=== PATIENT | male | born 1940 | race Caucasian/White ===

== ENCOUNTER 2022-01-20 19:31 | Observation (INO) | payer MEDICARE, SELFPAY ==
[2022-01-20 19:56] VITALS: BP 122/69; PULSE 72; RESP 18; TEMP 36.6; O2SAT 97; BMI 32.5
--- NOTE | 2022-01-20 20:02 | DI.RAD.S_ITS ---
PROCEDURE: XR RIBS LT MIN 3V W CXR1V INDICATIONS: fall/pain TECHNIQUE: 3 views of the left ribs were acquired, along with a single view chest. COMPARISON: None. FINDINGS: Surgical changes and devices: A left chest wall pacemaker is present. Bones and chest wall: There are mildly displaced fractures of the left 8th through 10th ribs posterolaterally. No suspicious bony lesions. Overlying soft tissues appear unremarkable. Lungs and pleura: No pleural effusions or pneumothorax. Lungs appear clear. Mediastinum: Mediastinal contours appear normal. Heart size is normal. IMPRESSION: 1. Mildly displaced fractures of the left 8th through 10th ribs. Dictated by: Jamie Starr M.D. on 01/20/2022 at 20:53 Approved by: Jamie Starr M.D. on 01/20/2022 at 20:55
[2022-01-20] MEDS: ACETAMINOPHEN 325 MG TABLET 650 MG PO (20:40)
--- NOTE | 2022-01-20 22:10 | DI.CT.S_ITS ---
PROCEDURE: CT CHEST W CON INDICATIONS: trauma, rib fractures, on eliquis TECHNIQUE: After the administration of intravenous contrast, 5 mm thick sections acquired from the pulmonary apices to the posterior costophrenic angles. 1 mm axial lung, 5 mm thick coronal and sagittal reformats and 7 mm axial MIP were acquired. For radiation dose reduction, the following was used: automated exposure control, adjustment of mA and/or kV according to patient size. COMPARISON: [facility], CR, XR RIBS LT MIN 3V W CXR1V, 01/20/2022, 20:03. FINDINGS: Image quality: Excellent. Lungs and pleura: No acute air space opacities. No pleural effusions or pneumothorax. Central and peripheral airways are patent and normal in caliber. Mediastinum: Heart size is normal. No pericardial effusion. No mediastinal or hilar adenopathy by size criteria. Thoracic aorta and central pulmonary arteries are normal in size. Esophagus is normal in caliber. No hiatal hernia. Bones and chest wall: No suspicious bony lesions, but prior plain film imaging same day has identified left-sided lateral 8th through 10th rib fractures. The 10th rib fracture can be seen by CT scanning as a discontinuity of the posterolateral course of the left 10th rib. The 11th rib more inferiorly on the left also has a subtle fracture on CT scanning.. No vertebral body compression fractures. No axillary or supraclavicular adenopathy by size criteria. Thyroid gland appears normal where well seen. Left-sided cardiac pacemaking device and leads appear normally positioned. Abdomen: Visualized upper abdominal solid organs appear normal. Upper abdominal bowel loops are normal in caliber. IMPRESSION: No pneumothorax found after trauma to the left chest with posterolateral left 8th through 10th rib fractures identified by plain film imaging and less well visualized by CT scanning given their minimally displaced status. No hemothorax or pulmonary contusion is found. Dictated by: Geovany Patrick M.D. on 01/20/2022 at 23:13 Approved by: Geovany Patrick M.D. on 01/20/2022 at 23:24
[2022-01-20] MEDS: OXYCODONE/ACETAMINOPHEN 5/325 TABLET 2 TAB PO (22:17)
[2022-01-20 22:38] LABS: Add Manual Diff / Slide Review NO; Basophils Absolute Auto 300 /uL (0-100); Basophils Percent Auto 2.1 % (0-2); Eosinophils Absolute Auto 100 /uL (0-450); Hematocrit 41.2 % (41-53); Lymphocytes Absolute Auto 1400 /uL (1100-4500); Mean Corpuscular Hemoglobin 30.5 PG (26-34); Mean Corpuscular Volume 89.6 fL (80-100); Monocytes Absolute Auto 600 /uL (0-900); Monocytes Percent Auto 4.5 % (3-14); Neutrophils Absolute Auto 11300 /uL (1500-7000); Neutrophils Percent Auto 82.4 % (50-75); Platelet Count 291 X10^3/uL (150-400); Red Cell Distribution Width 13.2 % (11.6-14.8); White Blood Cell Count 13.7 X10^3/uL (4.5-11.0)
[2022-01-20 22:46] LABS: Alanine Aminotransferase 16 IU/L (<50); Albumin Globulin Ratio 1.1 (1.0-2.8); Alkaline Phosphatase 85 U/L (38-126); Aspartate Aminotransferase 27 IU/L (17-59); BUN Creatinine Ratio 22.1 (6-22); Bilirubin Total 0.6 mg/dL (0.2-1.3); Blood Urea Nitrogen 21 mg/dL (9-20); Calcium 8.8 mg/dL (8.4-10.2); Carbon Dioxide 26 mmol/L (22-32); Chloride 106 mmol/L (98-107); Estimated Glomerular Filt Rate > 60 mL/min (>60); Globulin 3.5 g/dL (1.7-4.1); Glucose 113 mg/dL (80-110); HEMOLYSIS 25 (0-50); Potassium 4.5 mmol/L (3.4-5.1); Sodium 139 mmol/L (137-145); Total Protein 7.5 g/dL (6.3-8.2)
[2022-01-20 23:27] LABS: COVID19 -Nasal RAPID Negative (Negative)
--- NOTE | 2022-01-20 23:57 | ED_ITS ---
HPI - Back Pain/Injury General Chief Complaint: Back Pain/Injury Stated Complaint: Fell on boat, left side kidney Time Seen by Provider: 01/20/22 20:20 Source: patient History of Present Illness HPI Narrative: 81-year-old gentleman with a history of atrial fibrillation anticoagulated on Eliquis, pacemaker, hypertension, is visiting from [place] to get his boat ready for winter. He stepped through a hood on his boat and fell landing with his left lower ribs on the edge of a hat. He was able to extricate himself and get to the emergency department. He is not complaining of dyspnea but is noting that he has severe pain and as long as he is sitting upright and not moving he seems to be okay but is not able to lay back or take a deep breath. He is not complaining of any other injuries at this time. Prior to the fall he had not noticed any fevers, cough, chills, chest pain, dyspnea has not noticed palpitations. No abdominal pain weight gain, vomiting, diarrhea, lower extremity edema. Related Data Allergies Allergy/AdvReac Type Severity Reaction Status Date / Time No Known Drug Allergies Allergy Verified 01/20/22 19:56 Review of Systems Review of Systems Narrative: Remainder of complete review of systems is otherwise unremarkable except for that included in the HPI. Patient History Medical History Chronic atrial fibrillation History of cardiac pacemaker Hypertension Social History Smoking Status: Current every day smoker Smoking Status: Current every day smoker tobacco type: cigars alcohol intake frequency: holidays/special occasions only Substance Use Type: does not use Exam Initial Vital Signs Initial Vital Signs: Vital Signs Temperature 97.8 F 01/20/22 19:56 Pulse Rate 72 01/20/22 19:56 Respiratory Rate 18 01/20/22 19:56 Blood Pressure 122/69 01/20/22 19:56 Pulse Oximetry 97 01/20/22 19:56 Oxygen Delivery Method 01/20/22 19:56 General: Healthy appearing, in moderate amount of pain but Able to give a complete and coherent history. Well-nourished well-developed HEENT: Moist mucous membranes, normal sclera with reactive pupils, Neck: No JVD, supple, no midline cervical spine tenderness. Respiratory: Lungs are clear to auscultation, diminished breath sounds on the left due to splinting, no wheezing no rales no rhonchi. Minor linear abrasion over the left posterior lower ribs. Tenderness along the posterior axillary line left side. No subcutaneous emphysema. No obvious bruising. Cardiac: Regular rate and rhythm no murmurs no bruits Abdomen: Soft, nontender, good bowel tones, no flank pain, no abrasions or contusions Skin: Warm and dry, no rashes Neurologic: Grossly neurologically intact with no obvious asymmetries or abnormalities Extremities: No trauma, well perfused Psych: Cooperative, appropriate insight and affect Course Orders Ordered: ED Orders 01/20/22 20:02 XR ribs LT min 3V w CXR1V Stat 01/20/22 22:10 CT chest w con Stat 01/20/22 22:28 CBC Auto Diff [Complete Blood Count AUTO DIFF] Stat CMP [Comprehensive Metabolic Panel] Stat 01/20/22 23:05 COVID19 -Nasal RAPID/Pre-Proc Stat Discontinued Medications Acetaminophen (Acetaminophen 325 Mg Tablet) 650 mg PO NOW ONE Stop: 01/20/22 20:31 Last Admin: 01/20/22 20:40 Dose: 650 mg Documented By: NEELAM Oxycodone/Acetaminophen (Oxycodone/Acetaminophen 5/325 Tablet) 2 tab PO NOW ONE Stop: 01/20/22 22:11 Last Admin: 01/20/22 22:17 Dose: 2 tab Documented By: SB Vital Signs Vital signs: Vital Signs - 8 hr 01/20/22 19:56 Temperature 97.8 F Pulse Rate 72 Respiratory Rate 18 Blood Pressure 122/69 Pulse Oximetry 97 Oxygen Delivery Method Room Air MDM - Back Pain/Injury Lab Data Result diagrams: 01/20/22 22:28 01/20/22 22:28 Labs: Lab Results 01/20/22 01/20/22 01/20/22 Range/Units 22:28 22:28 23:05 WBC 13.7 H (4.5-11.0) X10^3/uL RBC 4.60 (4.5-5.9) X10^6/uL Hgb 14.0 (13.5-17.5) g/dL Hct 41.2 (41-53) % MCV 89.6 (80-100) fL MCH 30.5 (26-34) PG MCHC 34.0 (30-36) % RDW 13.2 (11.6-14.8) % Plt Count 291 (150-400) X10^3/uL Neut % (Auto) 82.4 H (50-75) % Lymph % (Auto) 10.0 L (25-40) % [place] % (Auto) 4.5 (3-14) % Eos % (Auto) 1.0 L (2-4) % Baso % (Auto) 2.1 H (0-2) % Neut # (Auto) 51918 H (0276-5783) /uL Lymph # (Auto) 1400 (1349-4180) /uL [place] # (Auto) 600 (0-900) /uL Eos # (Auto) 100 (0-450) /uL Baso # (Auto) 300 H (0-100) /uL Sodium 139 (137-145) mmol/L Potassium 4.5 (3.4-5.1) mmol/L Chloride 106 (98-107) mmol/L Carbon Dioxide 26 (22-32) mmol/L BUN 21 H (9-20) mg/dL Creatinine 0.95 (0.66-1.25) mg/dL Estimated GFR > 60 (>60) mL/min BUN/Creatinine Ratio 22.1 H (6-22) Glucose 113 H (80-110) mg/dL Calcium 8.8 (8.4-10.2) mg/dL Total Bilirubin 0.6 (0.2-1.3) mg/dL AST 27 (17-59) IU/L ALT 16 (<50) IU/L Alkaline Phosphatase 85 (38-126) U/L Total Protein 7.5 (6.3-8.2) g/dL Albumin 4.0 (3.5-5.0) g/dL Globulin 3.5 (1.7-4.1) g/dL Albumin/Globulin Ratio 1.1 (1.0-2.8) SARS-CoV-2 (PCR) Negative (Negative) Imaging Data Chest x-ray: Radiologist's Impression: FINDINGS:? ? Surgical changes and devices:? A left chest wall pacemaker is present.? ? Bones and chest wall:? There are mildly displaced fractures of the left 8th through 10th ribs posterolaterally.? No suspicious bony lesions.? Overlying soft tissues appear unremarkable.? ? Lungs and pleura:? No pleural effusions or pneumothorax.? Lungs appear clear.? ? Mediastinum:? Mediastinal contours appear normal.? Heart size is normal.? ? IMPRESSION:? ? 1. Mildly displaced fractures of the left 8th through 10th ribs. ? ? Dictated by: Jamie Starr M.D. on 01/20/2022 at 20:53 ? ? CT chest: Radiologist's Impression: INDINGS:? Image quality:? Excellent.? ? Lungs and pleura:? No acute air space opacities.? No pleural effusions or pneumothorax.? Central and peripheral airways are patent and normal in caliber.? ? Mediastinum:? Heart size is normal.? No pericardial effusion.? No mediastinal or hilar adenopathy by size criteria.? Thoracic aorta and central pulmonary arteries are normal in size.? Esophagus is normal in caliber.? No hiatal hernia.? ? Bones and chest wall:? No suspicious bony lesions, but prior plain film imaging same day has identified left-sided lateral 8th through 10th rib fractures.? The 10th rib fracture can be seen by CT scanning as a discontinuity of the posterolateral course of the left 10th rib.? The 11th rib more inferiorly on the left also has a subtle fracture on CT scanning..? No vertebral body compression fractures.? No axillary or supraclavicular adenopathy by size criteria.? Thyroid gland appears normal where well seen.? Left-sided cardiac pacemaking device and leads appear normally positioned.? ? Abdomen:? Visualized upper abdominal solid organs appear normal.? Upper abdominal bowel loops are normal in caliber.? ? IMPRESSION:? No pneumothorax found after trauma to the left chest with posterolateral left 8th through 10th rib fractures identified by plain film imaging and less well visualized by CT scanning given their minimally displaced status.? No hemothorax or pulmonary contusion is found. ? ? Dictated by: Geovany Patrick M.D. on 01/20/2022 at 23:13 ? ? [facility] Narrative Medical decision making narrative: 81-year-old gentle with for left-sided posterior broken ribs after a fall. He c urrently am is staying on his boat and has no family available to help. Pain control is somewhat improved after 2 Percocet but he still not able to lay flat in any way. He is having some significant splinting and has been given an incentive spirometer. At this point I would like to admit him for observation with for rib fractures in an 81-year-old gentleman with multiple medical problems including anticoagulation. I believe a brief period of observation with physical therapy evaluation and adequate pain control to make sure that he truly will be safe to be discharged home independently to return to his boat is going to be appropriate. Spoke with Ms. Singh, [facility] hospitalist. Discharge Plan Departure Patient Disposition: Admitted as Observation Admit Date/Time: 01/21/22 00:04
[2022-01-21 00:25] VITALS: BP 159/77; PULSE 70; RESP 18; TEMP 36.6; O2SAT 99
[2022-01-21 00:34] VITALS: O2SAT 97
[2022-01-21 00:41] VITALS: BMI 32.2
--- NOTE | 2022-01-21 01:47 | P.HP_ITS ---
History of Present Illness History of Present Illness Date Patient Seen: 01/21/22 Time Patient Seen: 12:20 Chief complaint: Fell on boat, left side kidney Narrative: Nima Lacy 81-year-old gentleman with a history of atrial fibrillation anticoagulated on Eliquis, pacemaker, and hypertension, who is visiting from [place] to get his boat ready for winter storage.? He stepped through a hood on his boat and fell landing with his left lower ribs on the edge of a hood.? He was able to extricate himself and get to the emergency department.? Patient denies shortness of breath but does have has severe pain with deep breaths or movement, unable to lay flat and as long as he is sitting upright and not moving he seems to be okay but is not able to lay back or take a deep breath.? He is not complaining of any other injuries at this time.? Prior to the fall he had not noticed any fevers, cough, chills, chest pain, dyspnea, palpitations, fever, abdominal pain, weight gain, vomiting, diarrhea, notes that he does have frequent urination but is at baseline no dysuria, urgency, no changes or difficulty with bowels, dizziness, lightheadedness, hypotension, no recent illness injury or trauma. Upon admit patient is stable vital signs temp 97.8?, BP 122/69, HR 72, R 18, O2 saturation 97% on room air. Patient did have a mild increase WBC 13.7 with a left shift neutrophils 11,300, baso#300, all other CBC chemistry and liver panel were WNL. Chest CT:?No pneumothorax found after trauma to the left chest with posterolateral left 8th through 10th rib fractures minimally displaced, No hemothorax or pulmonary contusion is found. Patient admitted for ground level fall resulting in multiple left rib fractures on chronic anticoagulation. 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 Pacemaker Surgical History History of radiofrequency ablation (RFA) for complex left atrial arrhythmia Family & Social History Family History Mother Congestive heart failure Father Cancer Social History: household members none Prior Living Arrangements House Safety & Behavioral: Feels Safe in Current Yes Environment Been Physically Hurt or No Threatened By a Person Tobacco & Substance use: Smoking Status Current one cigar daily alcohol intake frequency holiday/special occasion Substance Use Type does not use Meds Home Medications and Allergies Home Medications Medication Instructions Recorded Confirmed Type apixaban 5 mg tablet (Eliquis) 5 mg PO BID 01/21/22 01/21/22 History lisinopril 5 mg tablet 5 mg PO DAILY 01/21/22 01/21/22 History Allergies Allergy/AdvReac Type Severity Reaction Status Date / Time No Known Drug Allergies Allergy Verified 01/20/22 19:56 Review of Systems Review of Systems Narrative: All 12 point systems reviewed with the patient and are negative except otherwise documented. Exam Vital Signs (past 8 hours): - 01/20/22 19:56 01/21/22 00:25 01/21/22 00:34 Temperature 97.8 F 97.8 F Pulse Rate 72 70 Respiratory Rate 18 18 Blood Pressure 122/69 159/77 H Pulse Oximetry 97 99 97 Oxygen Delivery Method Room Air Room Air Oxygen Flow Rate 0 Oxygen Delivery Method Room Air Oxygen Flow Rate 0 Narrative Exam Narrative: General: Patient is a well-developed, well-nourished elderly male who appears younger than stated age, in moderate pain with deep breathing or any movement, in no acute distress at this time. HEENT: Normocephalic, atraumatic, extraocular muscles intact, oral pharynx is clear and mucous membranes are moist. Neck is supple and symmetric, trachea is midline, no adenopathy, no thyroid enlargement, nontender, no masses palpated. Negative for JVD Chest: Normal AP diameter and contour without kyphoscoliosis, no nasal flaring, retractions, or tachypneic labored Lungs: Lungs are clear to auscultation, diminished breath sounds on the left due to splinting, no wheezing no rales no rhonchi. Minor linear abrasion over the left posterior lower ribs. Tenderness along the posterior axillary line left side. No subcutaneous emphysema. No obvious bruising. Cardio: PACED regular rate and rhythm without murmur, rubs, or gallops, no carotid bruit, no cardiac pulsations present. (Pacemaker in place) Abdomen: Soft nontender, negative for organomegaly, or masses. Bowel sounds are present in all 4 quadrants without guarding or rebound, no CVA tenderness. Musculoskeletal: Muscle strength and tone are equal within normal limits, no deformity, crepitus, effusions, cyanosis, or clubbing present. Mild lower extremity equal , nonpitting +1 edema, Full range of motion intact radial and pedal pulses are normal. Skin: Large abrasion to lateral left thigh, without signs of infection. Neuro: Alert and orientated x3, strength is +5/5 in all extremities, sensation to touch intact, no gross deficits noted of cranial nerves. Psych: Patient has a well-kept appearance, appropriate affect, mental status attitude thought context and judgment are appropriate for age. Objective Labs Result Diagrams: 01/20/22 22:28 01/20/22 22:28 Labs: Laboratory Results - last 24 hr 01/20/22 01/20/22 01/20/22 22:28 22:28 23:05 WBC 13.7 H RBC 4.60 Hgb 14.0 Hct 41.2 MCV 89.6 MCH 30.5 MCHC 34.0 RDW 13.2 Plt Count 291 Neut % (Auto) 82.4 H Lymph % (Auto) 10.0 L [place] % (Auto) 4.5 Eos % (Auto) 1.0 L Baso % (Auto) 2.1 H Neut # (Auto) 54419 H Lymph # (Auto) 1400 [place] # (Auto) 600 Eos # (Auto) 100 Baso # (Auto) 300 H Sodium 139 Potassium 4.5 Chloride 106 Carbon Dioxide 26 BUN 21 H Creatinine 0.95 Estimated GFR > 60 BUN/Creatinine Ratio 22.1 H Glucose 113 H Calcium 8.8 Total Bilirubin 0.6 AST 27 ALT 16 Alkaline Phosphatase 85 Total Protein 7.5 Albumin 4.0 Globulin 3.5 Albumin/Globulin Ratio 1.1 SARS-CoV-2 (PCR) Negative Assessment & Plan Assessment & Plan narrative: Nima Lacy 81-year-old gentleman with a history of atrial fib rillation anticoagulated on Eliquis, pacemaker, and hypertension, who is visiting from [place] to get his boat ready for winter storage.? He stepped through a hood on his boat and fell landing with his left lower ribs, admitted for ground level fall resulting in multiple left rib fractures on chronic anticoagulation, observation to monitor for bleeding, infection, respiratory distress. 1. Ground level fall resulting in left rib fractures, 8-10 ribs, mildly displaced, acute, present on admission -Chest CT:?No pneumothorax found after trauma to the left chest with posterolateral left 8th through 10th rib fractures minimally displaced, No hemothorax or pulmonary contusion is found. -monitor for pneumothorax, bleeding, signs of infection, shock -pain control: oxycodone, Voltaren gel, lidocaine patch, ice PRN -gentle hydration NS at 60 cc/HR -patient education provided regarding splinting for deep breathing -incentive spirometry q.2 hours while awake to encourage deep breathing. -PT/OT consults 2. Atrial fibrillation on chronic anticoagulation Eliquis, with pacemaker, chronic, present on admission -patient placed on telemetry -continue Eliquis 3. Hypertension, essential, chronic, present on [id number] -continue lisinopril 4. Overweight as evidence by BMI of 32.5, acute on chronic, present on admission -patient's weight may impact his ability to heal developed infection ultimately putting him at high risk for morbidity and mortality. -dietary consult placed for nutritional education, lifestyle modification and weight loss. Code status:DNR Surrogate decision maker: Daughter Libby MARSH PCR: Negative DVT/VTE prophylaxis: Continue patient's Eliquis, SCDs only Disposition: Patient admitted for observation to monitor for bleeding signs of sepsis or septic shock, respiratory distress or pneumothorax, expected length of stay less than 3 midnights. I have utilized all available immediate resources to obtain, update, or review the patient's current medications. I confirmed that the patient's advanced care plan is present, Code status is documented and/or surrogate decision maker is listed in the patient's medical record. Time Spent With Patient Critical Care time: I spent a total of [] minutes of critical care time on this patient's care today; this time is exclusive of procedural time. Scores GCS Julian coma scale eye opening: Spontaneous Brandon coma scale verbal response: Orientated Julian coma scale motor response: Obey commands Brandon coma scale total score: 15 Quality VTE Deep Vein Thrombosis/Pulmonary Embolism Present on Admission: No
[2022-01-21] MEDS: OXYCODONE IR 10 MG TABLET PO ×2 (01:55→08:50)
[2022-01-21] MEDS: ACETAMINOPHEN 325 MG TABLET 650 MG PO ×2 (01:56→08:50)
[2022-01-21] MEDS: LIDOCAINE PATCH 1 EACH ADH..PATCH TOP (01:56)
[2022-01-21] MEDS: SODIUM CHLORIDE 0.9% 500 ML 60 ML IV (02:02)
[2022-01-21 04:34] VITALS: BP 131/72; PULSE 70; RESP 16; TEMP 36.3; O2SAT 96
[2022-01-21 06:25] LABS: Add Manual Diff / Slide Review NO; Basophils Absolute Auto 0 /uL (0-100); Basophils Percent Auto 0.4 % (0-2); Eosinophils Absolute Auto 200 /uL (0-450); Eosinophils Percent Auto 1.8 % (2-4); Hematocrit 37.4 % (41-53); Lymphocytes Absolute Auto 2800 /uL (1100-4500); Lymphocytes Percent Auto 28.8 % (25-40); Mean Corpuscular HGB Conc 34.8 % (30-36); Mean Corpuscular Volume 89.2 fL (80-100); Monocytes Absolute Auto 800 /uL (0-900); Monocytes Percent Auto 8.5 % (3-14); Neutrophils Absolute Auto 5900 /uL (1500-7000); Neutrophils Percent Auto 60.5 % (50-75); Platelet Count 241 X10^3/uL (150-400); Red Cell Distribution Width 13.4 % (11.6-14.8); White Blood Cell Count 9.7 X10^3/uL (4.5-11.0)
[2022-01-21 06:26] LABS: Appearance Urine UA CLEAR; Bilirubin Urine UA NEGATIVE (NEGATIVE); Color Urine UA YELLOW; Glucose Urine UA NEGATIVE (Negative); Ketones Urine UA NEGATIVE (NEGATIVE); Leukocyte Esterase Urine UA NEGATIVE (NEGATIVE); Nitrite Urine UA NEGATIVE (Negative); Occult Blood Urine UA NEGATIVE (Negative); Protein Urine UA NEGATIVE (Negative); Urobilinogen Urine UA 0.2 E.U./dL (0.2)
[2022-01-21 06:36] LABS: BUN Creatinine Ratio 23.8 (6-22); Blood Urea Nitrogen 20 mg/dL (9-20); Calcium 8.1 mg/dL (8.4-10.2); Carbon Dioxide 27 mmol/L (22-32); Chloride 107 mmol/L (98-107); Estimated Glomerular Filt Rate > 60 mL/min (>60); Glucose 95 mg/dL (80-110); HEMOLYSIS < 15 (0-50); Potassium 3.9 mmol/L (3.4-5.1); Sodium 138 mmol/L (137-145)
[2022-01-21 06:42] LABS: RBC Urine 0-1/HPF (0-5/HPF); WBC Urine None Seen (0-5/HPF)
[2022-01-21 06:43] LABS: Bacteria Urine Occasional (0-1); Culture Indicated Urine Cult Not Indicated; Mucus Urine 1+ (Negative); Squamous Epithelial Cell Urine 0-1 /HPF (0-5/HPF)
[2022-01-21 08:00] VITALS: BP 143/67; PULSE 69; RESP 18; TEMP 36.6; O2SAT 95
[2022-01-21 08:50] VITALS: BP 143/67; PULSE 69
[2022-01-21] MEDS: lisinopriL 5 MG TABLET PO (08:50)
--- NOTE | 2022-01-21 11:01 | PT.IPNOTE ---
Pt declined need for PT. He reports mobilizing I'ly in room. He is planning to discharge today to a hotel and fly out back to [place] on Sat. His PLOF is fully independent. Ns confirms that Pt has been Ind in room.
[2022-01-21 12:00] VITALS: O2SAT 95
--- NOTE | 2022-01-21 13:02 | CM.MNRNOTE ---
Day shift Pt left via wheel chair with all personal belongings, Pt received all paperwork and and all questions answered. Pt denied pain and nausea. Pt is taking POV transport to home. VS WNL. Pt left floor at 1305
--- NOTE | 2022-01-21 14:56 | PM.DS.1 ---
History of Present Illness History of Present Illness Date Patient Seen: 01/21/22 Chief complaint: Fell on boat Narrative: From admission note: Nima Lacy? 81-year-old gentleman with a history of atrial fibrillation anticoagulated on Eliquis, pacemaker, and hypertension, who is visiting from [place] to get his boat ready for winter storage.? He stepped through a hood on his boat and fell landing with his left lower ribs on the edge of a hood.? He was able to extricate himself and get to the emergency department.? Patient denies shortness of breath but does have has severe pain with deep breaths or movement, unable to lay flat? and as long as he is sitting upright and not moving he seems to be okay but is not able to lay back or take a deep breath.? He is not complaining of any other injuries at this time.? Prior to the fall he had not noticed any fevers, cough, chills, chest pain, dyspnea, palpitations, fever, abdominal pain, weight gain, vomiting, diarrhea, notes that he does have frequent urination but is at baseline no dysuria, urgency, no changes or difficulty with bowels, dizziness, lightheadedness, hypotension, no recent illness injury or trauma. Upon admit patient is stable vital signs temp 97.8?, BP 122/69, HR 72, R 18, O2 saturation 97% on room air.? Patient did have a mild increase WBC 13.7 with a left shift neutrophils 11,300, baso#300, all other CBC chemistry and liver panel were WNL. Chest CT:?No pneumothorax found after trauma to the left chest with posterolateral left 8th through 10th rib fractures minimally displaced, No hemothorax or pulmonary contusion is found.? Patient admitted for ground level fall resulting in multiple left rib fractures on chronic anticoagulation.? Discharge Providers Provider Date of admission: 01/21/22 00:04 Discharge Date: 01/21/22 Consults: 01/21/22 00:39 Consult to Dietitian, Adult Routine Comment: Reason For Exam: BMI 32.5 01/21/22 00:41 Consult to Occupational Therapy Evaluate & Treat Comment: Fall, multiple Rib fx Physician Instructions: Evaluate and treat Consult to Physical Therapy Evaluate & Treat Comment: Fall, multiple Rib fx Physician Instructions: Evaluate and Treat Discharge provider: Bhargav Bush MD Summary Hospital Course Discharge Diagnosis: Ground level fall resulting in left rib fractures, 8-10 ribs, mildly displaced, acute, present on admission Atrial fibrillation on chronic anticoagulation Eliquis, with pacemaker, chronic, present on admission Hypertension, essential, chronic, present on [id number] Overweight as evidence by BMI of 32.5, acute on chronic, present on admission Hospital Course: Patient was admitted for appropriate pain control, overnight monitoring. Patient pain well controlled this morning when I saw him, no signs of bruising or no signs of any worsening of the breathing at this time. Patient is planning to go back to [place] on Saturday. He is making arrangements to sleep upright in his boat. He does have friends to help him. I offered to talk to his family members, he said his updating and no need to call them. I told him to ask his friends to look at his back and also left side of the chest to make sure there is no worsening of the bruising in next few days. And I also encouraged the patient to come back to the ER in case if he is noticing any breathing difficulties or any signs of bleeding. Resume Eliquis with the caution. Status at Discharge Cognitive/behavioral status at discharge: at baseline, oriented Functional status at discharge: independent ambulation Overall status at discharge: patient is progressing back to baseline Time Spent with Patient Time spent: Greater than 30 minutes Exam Vital Signs (past 8 hours): - 01/21/22 08:00 01/21/22 08:50 01/21/22 08:00 Temperature 97.8 F Pulse Rate 69 69 Respiratory Rate 18 Blood Pressure 143/67 H 143/67 H Pulse Oximetry 95 95 Oxygen Delivery Method Room Air Oxygen Flow Rate 0 01/21/22 12:00 Temperature Pulse Rate Respiratory Rate Blood Pressure Pulse Oximetry 95 Oxygen Delivery Method Room Air Oxygen Flow Rate Oxygen Delivery Method Room Air Oxygen Flow Rate 0 Narrative Exam Narrative: Mild tenderness on the left side of the chest on palpation but no obvious bruits noted. His air entry on both lung wilburn seems to be okay except few basal crackles. Patient ambulating without any difficulty. Objective Labs Result Diagrams: 01/21/22 06:14 01/21/22 06:14 Labs: Laboratory Results - last 24 hr 01/20/22 01/20/22 01/20/22 22:28 22:28 23:05 WBC 13.7 H RBC 4.60 Hgb 14.0 Hct 41.2 MCV 89.6 MCH 30.5 MCHC 34.0 RDW 13.2 Plt Count 291 Neut % (Auto) 82.4 H Lymph % (Auto) 10.0 L [place] % (Auto) 4.5 Eos % (Auto) 1.0 L Baso % (Auto) 2.1 H Neut # (Auto) 50593 H Lymph # (Auto) 1400 [place] # (Auto) 600 Eos # (Auto) 100 Baso # (Auto) 300 H Sodium 139 Potassium 4.5 Chloride 106 Carbon Dioxide 26 BUN 21 H Creatinine 0.95 Estimated GFR > 60 BUN/Creatinine Ratio 22.1 H Glucose 113 H Calcium 8.8 Total Bilirubin 0.6 AST 27 ALT 16 Alkaline Phosphatase 85 Total Protein 7.5 Albumin 4.0 Globulin 3.5 Albumin/Globulin Ratio 1.1 Urine Color Urine Appearance Urine pH Ur Specific [place] Urine Protein Urine Glucose (UA) Urine Ketones Urine Occult Blood Urine Nitrate Urine Bilirubin Urine Urobilinogen Ur Leukocyte Esterase Urine RBC Urine WBC Ur Squamous Epith Cells Urine Bacteria Urine Mucus Ur Culture Indicated? SARS-CoV-2 (PCR) Negative 01/21/22 01/21/22 01/21/22 06:14 06:14 06:15 WBC 9.7 RBC 4.20 L Hgb 13.0 L Hct 37.4 L MCV 89.2 MCH 31.0 MCHC 34.8 RDW 13.4 Plt Count 241 Neut % (Auto) 60.5 D Lymph % (Auto) 28.8 [place] % (Auto) 8.5 Eos % (Auto) 1.8 L Baso % (Auto) 0.4 Neut # (Auto) 5900 Lymph # (Auto) 2800 [place] # (Auto) 800 Eos # (Auto) 200 Baso # (Auto) 0 Sodium 138 Potassium 3.9 Chloride 107 Carbon Dioxide 27 BUN 20 Creatinine 0.84 Estimated GFR > 60 BUN/Creatinine Ratio 23.8 H Glucose 95 Calcium 8.1 L Total Bilirubin AST ALT Alkaline Phosphatase Total Protein Albumin Globulin Albumin/Globulin Ratio Urine Color Yellow Urine Appearance Clear Urine pH 5.0 Ur Specific [place] 1.020 Urine Protein Negative Urine Glucose (UA) Negative Urine Ketones Negative Urine Occult Blood Negative Urine Nitrate Negative Urine Bilirubin Negative Urine Urobilinogen 0.2 Ur Leukocyte Esterase Negative Urine RBC 0-1/hpf Urine WBC None seen Ur Squamous Epith Cells 0-1 /hpf Urine Bacteria Occasional (0-1) Urine Mucus 1+ H Ur Culture Indicated? Cult not indicated SARS-CoV-2 (PCR) [facility] Medical History (Updated 01/21/22 @ 03:03 by MARTHA Lagunas) Chronic atrial fibrillation Essential hypertension History of cardiac pacemaker History of prostate cancer Hypertension custodial current use of anticoagulant therapy Pacemaker Surgical History History of radiofrequency ablation (RFA) for complex left atrial arrhythmia Family History Mother Congestive heart failure Father Cancer Social History household members: none Smoking Status: Current every day smoker Discharge Assessment & Plan Assessment and Plan Assessment: From admission note: Nima Lacy? 81-year-old gentleman with a history of atrial fibrillation anticoagulated on Eliquis, pacemaker, and hypertension, who is visiting from [place] to get his boat ready for winter storage.? He stepped through a hood on his boat and fell landing with his left lower ribs, admitted for ground level fall resulting in multiple left rib fractures on chronic anticoagulation, observation to monitor for bleeding, infection, respiratory distress. 1. Ground level fall resulting in left rib fractures, 8-10 ribs, mildly displaced, acute, present on admission -Chest CT:?No pneumothorax found after trauma to the left chest with posterolateral left 8th through 10th rib fractures minimally displaced, No hemothorax or pulmonary contusion is found. -monitor for pneumothorax, bleeding, signs of infection, shock -pain control: oxycodone, Voltaren gel, lidocaine patch, ice PRN -gentle hydration NS at 60 cc/HR -patient education provided regarding splinting for deep breathing -incentive spirometry q.2 hours while awake to encourage deep breathing. -PT/OT consults 2. Atrial fibrillation on chronic anticoagulation Eliquis, with pacemaker, chronic, present on admission -patient placed on telemetry -continue Eliquis 3. Hypertension, essential, chronic, present on [id number] -continue lisinopril 4. Overweight as evidence by BMI of 32.5, acute on chronic, present on admission -patient's weight may impact his ability to heal developed infection ultimately putting him at high risk for morbidity and mortality. -dietary consult placed for nutritional education, lifestyle modification and weight loss. Code status:DNR Surrogate decision maker: Daughter Libby MARSH PCR:? Negative DVT/VTE prophylaxis:? Continue patient's Eliquis, SCDs only Disposition:? Patient admitted for observation to monitor for bleeding signs of sepsis or septic shock, respiratory distress or pneumothorax, expected length of stay less than 3 midnights. Plan of Treatment: Follow up with the primary care physician recommended Any signs of bleeding or bruising at the site of need an immediate evaluation and also stopping Eliquis Discharge Plan Discharge Plan Patient Disposition: Home Provider Discharge Comment: Any worsening of the pain or breathing difficulties, need to come back to the ER for further evaluation. Breathing encouraged, cautioned with the pain medications explained. Discharge orders & Medications Prescriptions: New lidocaine 5 % Adhesive Patch,Medicated 1 patch topical BEDTIME 7 Days Qty: 7 0RF Rx Instructions: Apply for 12 hrs and remove with gap of 12 hrs between patches oxycodone 10 mg Tablet 10 mg PO Q6H PRN (Reason: Pain, Severe (7-10)) 7 Days Qty: 20 0RF Rx Instructions: As needed for pain, caution explained. acetaminophen 325 mg Tablet 650 mg PO Q6HR PRN (Reason: Fever/Mild Pain (1-3)) 7 Days Qty: 30 0RF Continued Eliquis 5 mg tablet 5 mg PO BID Label Comments: TAKE 1 TABLET BY MOUTH 2 TIMES A DAY lisinopril 5 mg Tablet 5 mg PO DAILY Diet/Activity/Treatments Diet: Diet as Tolerated Activity: As tolerated and also encouraged strong breathing, discharge patient with incentive spirometry Visit Report/Discharge Packet Instructions: How to Prevent Falls, DI for Prescription Opioid Use Discharge Data Primary Care Provider: Miscellaneous,Doctor Attending Provider: Joyce Singh VTE Deep Vein Thrombosis/Pulmonary Embolism Present on Admission: No
== END 2022-01-21 13:05 | disposition home or self-care (01) ==
LOC: ED 22:46 → AC 01-21 00:05
PROVIDERS: Admitting Provider Nurse Practitioner Family; Emergency Provider Emergency Medicine; Referring Provider Emergency Medicine; Visit Provider Nurse Practitioner Family
DX: S22.42XA Multiple fractures of ribs, left side, initial encounter for closed fracture (principal); V93.39XA Fall on board unspecified watercraft, initial encounter; Y92.89 Other specified places as the place of occurrence of the external cause; Z79.01 Long term (current) use of anticoagulants; I10 Essential (primary) hypertension; Z95.0 Presence of cardiac pacemaker; I48.20 Chronic atrial fibrillation, unspecified; F17.210 Nicotine dependence, cigarettes, uncomplicated; E66.3 Overweight; Z68.32 Body mass index [BMI] 32.0-32.9, adult; Z20.822 Contact with and (suspected) exposure to COVID-19
CPT/HCPCS: 36415; 71101; 71260; 80048; 80053; 81001; 85025; 87635; 99285; C9803; G0378; Q9967

== ENCOUNTER 2022-01-22 17:59 | Emergency (ER) | payer MEDICARE, SELFPAY ==
[2022-01-21 00:41] VITALS: BMI 32.2
--- NOTE | 2022-01-22 18:05 | ED_ITS ---
HPI - Abdominal Pain General Chief Complaint: Abdominal Pain Stated Complaint: abd. pain Time Seen by Provider: 01/22/22 18:05 History of Present Illness HPI narrative: 81-year-old male smoker with history of hypertension, atrial fib and pacemaker on anticoagulation presents for the 2nd time this week, stating he is feeling much worse today. He was seen and evaluated few days ago after having a ground level fall and after thorough evaluation was found to have multiple broken ribs including left side 8 9 in 10 with minimal displacement and no pneumothorax. He was discharged the following day on oxycodone. He had not been taking stool softeners until today. He presents with subjective fever, chills and weakness. He has ongoing pain in his ribs but complains of a distended abdomen that is quite tender with decreased bowel movements and no flatus. He does have swelling in his bilateral lower extremities. Related Data Home Medications Medication Instructions Recorded Confirmed apixaban 5 mg tablet (Eliquis) 5 mg PO BID 01/21/22 01/21/22 lisinopril 5 mg tablet 5 mg PO DAILY 01/21/22 01/21/22 Previous Rx's Medication Instructions Recorded acetaminophen 325 mg tablet 650 mg PO Q6HR PRN Fever/Mild Pain 01/21/22 (1-3) 7 days #30 tabs lidocaine 5 % topical patch 1 patch topical BEDTIME 7 days #7 01/21/22 ea oxycodone 10 mg tablet 10 mg PO Q6H PRN Pain, Severe 01/21/22 (7-10) 7 days #20 tabs amoxicillin 875 mg-potassium 1 tab PO Q12H #20 tabs 01/23/22 clavulanate 125 mg tablet Allergies Allergy/AdvReac Type Severity Reaction Status Date / Time No Known Drug Allergies Allergy Verified 01/20/22 19:56 Review of Systems Review of Systems Narrative: GENERAL: Denies chills, fatigue, malaise, fever, sweats. HEENT: Denies sinus pain, ear pain, sore throat, difficulty swallowing, dizziness. RESPIRATORY: Denies dyspnea, cough, wheezing, hemoptysis, sputum. CARDIOVASCULAR: Denies chest pain, palpitations, orthopnea, edema, GASTROINTESTINAL: See HPI : Denies dysuria, frequency, incontinence, hematuria, urinary retention. MUSCULOSKELETAL: denies weakness, joint pain, or bony pain SKIN: Denies rash, skin lesions, or other NEUROLOGIC: Denies weakness, headache, numbness, change in speech, confusion, seizures, incoordination. PSYCHIATRIC: No concerning psychosocial issues. 12 point review of systems is negative except for those stated above Patient History Medical History Chronic atrial fibrillation Essential hypertension History of cardiac pacemaker History of prostate cancer Hypertension MCFP current use of anticoagulant therapy Pacemaker Surgical History History of radiofrequency ablation (RFA) for complex left atrial arrhythmia Family History Mother Congestive heart failure Father Cancer Social History household members: none Smoking Status: Current every day smoker Smoking Status: Current every day smoker tobacco type: cigars alcohol intake frequency: holidays/special occasions only Substance Use Type: does not use Exam Narrative Exam Narrative: GENERAL: [81] year old patient appears stated age. Well-developed patient, in mild distress. HEAD: Atraumatic. Normocephalic. EYES: Pupils equal round and reactive. Extraocular motions intact. No scleral icterus. No injection or drainage. ENT: Nose without bleeding, purulent drainage. Throat without erythema, tonsill ar hypertrophy or exudate. Airway patent. NECK: Trachea midline. Non tender CARDIOVASCULAR: Regular rate and rhythm without murmurs, gallops, or rubs. Left lateral ribs tender to palpation without crepitance or subcu emphysema, patient visibly splinting with deep breath RESPIRATORY: Clear to auscultation. Breath sounds equal bilaterally. No wheezes, rales, or rhonchi. GASTROINTESTINAL: Abdomen soft, non-tender, abdomen distended with decreased bowel sounds throughout EXTREMITIES: bilateral LE with 2+ pitting edema BACK: Nontender without deformity or crepitance. No flank tenderness. NEURO: AOx3. SKIN: No rash or erythema of visible areas Initial Vital Signs Initial Vital Signs: Vital Signs Temperature 98.2 F 01/22/22 18:57 Pulse Rate 92 H 01/22/22 18:57 Respiratory Rate 20 01/22/22 18:57 Blood Pressure 206/94 H 01/22/22 18:57 Pulse Oximetry 97 01/22/22 18:57 Oxygen Delivery Method 01/22/22 18:57 Course Course Course Narrative: Patient had some stool production after the above-stated therapies. He is feeling a bit better. He certainly in no respiratory distress, he is awake alert and oriented and has no tachypnea, use of accessory muscles or need for supplemental oxygen. He has no suggestion of bowel obstruction and likely is backed up as a consequence of being on pain control for his rib fractures Orders Ordered: ED Orders 01/22/22 21:23 Blood Culture Stat 01/22/22 21:39 Urine Microscopic Stat Discontinued Medications Bisacodyl (Bisacodyl 10 Mg Supp) 10 mg [place] NOW ONE Stop: 01/22/22 20:54 Last Admin: 01/22/22 21:21 Dose: 10 mg Documented By: NABOR Ceftriaxone Sodium 2,000 mg/ (Sodium Chloride) 100 mls @ 200 mls/hr IV NOW ONE Stop: 01/22/22 20:54 Last Infusion: 01/22/22 21:54 Dose: 0 mls/hr Documented By: Admin: 01/22/22 21:19 Dose: 200 mls/hr Documented By: NABOR Azithromycin 500 mg/ Dextrose 250 mls @ 250 mls/hr IV NOW ONE Stop: 01/22/22 20:54 Last Infusion: 01/22/22 23:35 Dose: 0 mls/hr Documented By: Admin: 01/22/22 21:52 Dose: 250 mls/hr Documented By: NABOR Magnesium Citrate (Magnesium Citrate 300 Ml Solution) 300 ml PO NOW ONE Stop: 01/23/22 00:19 Last Admin: 01/23/22 00:33 Dose: Not Given Documented By: KUN Ondansetron HCl (Ondansetron 4 Mg/2 Ml Inj) 4 mg IV NOW ONE Stop: 01/22/22 19:39 Last Admin: 01/22/22 19:45 Dose: 4 mg Documented By: AP Reevaluation(s) Reevaluation #1: Patient had minimal stool output after Dulcolax suppository, we discussed the use of enema and he is open to the concept Vital Signs Vital signs: Vital Signs - 8 hr 01/23/22 01:03 Pulse Rate 69 Respiratory Rate 18 Blood Pressure 164/89 H Pulse Oximetry 99 Oxygen Delivery Method Room Air MDM - Abdominal Pain Lab Data Result diagrams: 01/22/22 19:20 01/22/22 19:20 Labs: Lab Results 01/22/22 01/22/22 01/22/22 Range/Units 19:20 19:20 19:20 WBC 11.4 H (4.5-11.0) X10^3/uL RBC 4.52 (4.5-5.9) X10^6/uL Hgb 13.8 (13.5-17.5) g/dL Hct 40.7 L (41-53) % MCV 90.1 (80-100) fL MCH 30.5 (26-34) PG MCHC 33.8 (30-36) % RDW 12.9 (11.6-14.8) % Plt Count 262 (150-400) X10^3/uL Neut % (Auto) 71.3 (50-75) % Lymph % (Auto) 19.0 L (25-40) % [place] % (Auto) 8.3 (3-14) % Eos % (Auto) 1.0 L (2-4) % Baso % (Auto) 0.4 (0-2) % Neut # (Auto) 8200 H (0858-8929) /uL Lymph # (Auto) 2200 (8874-9435) /uL [place] # (Auto) 900 (0-900) /uL Eos # (Auto) 100 (0-450) /uL Baso # (Auto) 0 (0-100) /uL PT 13.6 H (10.1-12.7) SECONDS INR 1.2 (0.9-1.3) Sodium 140 (137-145) mmol/L Potassium 4.1 (3.4-5.1) mmol/L Chloride 105 (98-107) mmol/L Carbon Dioxide 25 (22-32) mmol/L BUN 22 H (9-20) mg/dL Creatinine 0.91 (0.66-1.25) mg/dL Estimated GFR > 60 (>60) mL/min BUN/Creatinine Ratio 24.2 H (6-22) Glucose 112 H (80-110) mg/dL Lactate (0.7-2.1) mmol/L Calcium 8.8 (8.4-10.2) mg/dL Total Bilirubin 1.2 (0.2-1.3) mg/dL AST 31 (17-59) IU/L ALT 14 (<50) IU/L Alkaline Phosphatase 86 (38-126) U/L Total Creatine Kinase (55-170) U/L CK-MB (CK-2) (<2.37) ng/mL CK-MB (CK-2) Rel Index (1.5-5.0) % Troponin I (0.01-0.034) ng/mL NT-Pro-B Natriuret Pep (<450) pg/mL Total Protein 7.7 (6.3-8.2) g/dL Albumin 4.0 (3.5-5.0) g/dL Globulin 3.7 (1.7-4.1) g/dL Albumin/Globulin Ratio 1.1 (1.0-2.8) Procalcitonin (<0.5) ng/mL Urine RBC (0-5/HPF) Urine WBC (0-5/HPF) Urine Bacteria (None) Ur Culture Indicated? Micro UA Comment Blood Type Antibody Screen 01/22/22 01/22/22 01/22/22 Range/Units 19:20 19:20 19:20 WBC (4.5-11.0) X10^3/uL RBC (4.5-5.9) X10^6/uL Hgb (13.5-17.5) g/dL Hct (41-53) % MCV (80-100) fL MCH (26-34) PG MCHC (30-36) % RDW (11.6-14.8) % Plt Count (150-400) X10^3/uL Neut % (Auto) (50-75) % Lymph % (Auto) (25-40) % [place] % (Auto) (3-14) % Eos % (Auto) (2-4) % Baso % (Auto) (0-2) % Neut # (Auto) (3785-1413) /uL Lymph # (Auto) (5024-0391) /uL [place] # (Auto) (0-900) /uL Eos # (Auto) (0-450) /uL Baso # (Auto) (0-100) /uL PT (10.1-12.7) SECONDS INR (0.9-1.3) Sodium (137-145) mmol/L Potassium (3.4-5.1) mmol/L Chloride (98-107) mmol/L Carbon Dioxide (22-32) mmol/L BUN (9-20) mg/dL Creatinine (0.66-1.25) mg/dL Estimated GFR (>60) mL/min BUN/Creatinine Ratio (6-22) Glucose (80-110) mg/dL Lactate 1.0 (0.7-2.1) mmol/L Calcium (8.4-10.2) mg/dL Total Bilirubin (0.2-1.3) mg/dL AST (17-59) IU/L ALT (<50) IU/L Alkaline Phosphatase (38-126) U/L Total Creatine Kinase 263 H (55-170) U/L CK-MB (CK-2) 1.77 (<2.37) ng/mL CK-MB (CK-2) Rel Index 0.7 L (1.5-5.0) % Troponin I < 0.012 (0.01-0.034) ng/mL NT-Pro-B Natriuret Pep (<450) pg/mL Total Protein (6.3-8.2) g/dL Albumin (3.5-5.0) g/dL Globulin (1.7-4.1) g/dL Albumin/Globulin Ratio (1.0-2.8) Procalcitonin (<0.5) ng/mL Urine RBC (0-5/HPF) Urine WBC (0-5/HPF) Urine Bacteria (None) Ur Culture Indicated? Micro UA Comment Blood Type A Positive Antibody Screen Negative 01/22/22 01/22/22 01/22/22 Range/Units 19:20 19:20 21:39 WBC (4.5-11.0) X10^3/uL RBC (4.5-5.9) X10^6/uL Hgb (13.5-17.5) g/dL Hct (41-53) % MCV (80-100) fL MCH (26-34) PG MCHC (30-36) % RDW (11.6-14.8) % Plt Count (150-400) X10^3/uL Neut % (Auto) (50-75) % Lymph % (Auto) (25-40) % [place] % (Auto) (3-14) % Eos % (Auto) (2-4) % Baso % (Auto) (0-2) % Neut # (Auto) (7646-2581) /uL Lymph # (Auto) (0520-3290) /uL [place] # (Auto) (0-900) /uL Eos # (Auto) (0-450) /uL Baso # (Auto) (0-100) /uL PT (10.1-12.7) SECONDS INR (0.9-1.3) Sodium (137-145) mmol/L Potassium (3.4-5.1) mmol/L Chloride (98-107) mmol/L Carbon Dioxide (22-32) mmol/L BUN (9-20) mg/dL Creatinine (0.66-1.25) mg/dL Estimated GFR (>60) mL/min BUN/Creatinine Ratio (6-22) Glucose (80-110) mg/dL Lactate (0.7-2.1) mmol/L Calcium (8.4-10.2) mg/dL Total Bilirubin (0.2-1.3) mg/dL AST (17-59) IU/L ALT (<50) IU/L Alkaline Phosphatase (38-126) U/L Total Creatine Kinase (55-170) U/L CK-MB (CK-2) (<2.37) ng/mL CK-MB (CK-2) Rel Index (1.5-5.0) % Troponin I (0.01-0.034) ng/mL NT-Pro-B Natriuret Pep 55 (<450) pg/mL Total Protein (6.3-8.2) g/dL Albumin (3.5-5.0) g/dL Globulin (1.7-4.1) g/dL Albumin/Globulin Ratio (1.0-2.8) Procalcitonin 0.06 (<0.5) ng/mL Urine RBC None seen (0-5/HPF) Urine WBC None seen (0-5/HPF) Urine Bacteria None seen (None) Ur Culture Indicated? Cult not indicated Micro UA Comment Microscopic normal Blood Type Antibody Screen Point of care testing: Urine Dip Bedside Urine Glucose Negative Bedside Urine Bilirubin - Negative Bedside Urine Ketone + 15 Urine Specific [place] 1.025 Bedside Urine Occult Blood +/- Bedside Urine pH 5.0 Bedside Urine Protein +/- 15 Bedside Urine Urobilinogen - Negative Bedside Urine Nitrite - Negative Bedside Urine Leukocytes - Negative Esterase Imaging Data CT scan - chest: Radiologist's Impression: Nima Lacy?(Cayden)??81??M??1940 ? Allergy/Adv: No Known Drug Allergies (More??) Close Chest/Abdomen/Pelvis CT (Signed) Lanre Hightower - 01/22/22 Chest/Abdomen X-ray (Signed) Lanre Hightower - 01/22/[address] (Signed) Geovany Patrick - 01/20/22 Ribs X-Ray (Signed) Jamie Starr - 01/20/22 Launch?[place] [address] CT Scan Report Signed Patient: Nima Lacy MR#: [id number] : 1940 Acct:[id number] Age/Sex: 81 / M Date of Service: 01/22/22 Loc: ED Accession Number: [id number] ?? Procedure: CT chest abd pel w con Ordering Provider: Karthikeyan Weber D.O. PROCEDURE:? CT CHEST ABD PEL W CON ? INDICATIONS:? recent trauma, anticoagulated, fever chills ? TECHNIQUE:? After the administration of intravenous contrast, 5 mm thick sections acquired from the lung apices to the symphysis.? 2.5 mm thick coronal and sagittal reformats were acquired. ?Additional 7 mm thick coronal maximum intensity projection (MIP) reformats acquired through the lungs.? Optional 10-minute delayed imaging may be performed from the kidneys to the bladder.? For radiation dose reduction, the following was used:? automated exposure control, adjustment of mA and/or kV according to patient size.? ? COMPARISON:? [facility], CT, CT CHEST W CON, 01/20/2022, 22:57. ? FINDINGS:? Image quality:? Excellent.? ? CHEST:? Lungs:? There are few scattered small round ground-glass airspace opacities in both lungs.? These are new when compared with the prior exam.? Findings are consistent with a bronchiolitis or small airways disease, either infectious or inflammatory. ? Mediastinum:? No mediastinal hematomas.? Heart size is normal.? No pericardial effusion.? Thoracic aorta and pulmonary arteries demonstrate normal size and enhancement.? No mediastinal or hilar adenopathy.? Esophagus is normal in caliber.? No hiatal hernia.? ? Chest wall:? ? ? ABDOMEN AND PELVIS:? No free air or free fluid.? No acute enteric process.? Normal CT appearance of the liver, spleen, and fatty atrophied pancreas.? Right adrenal nodule unchanged.? No acute renal or ureteral finding.? Vicarious secretion of contrast in the gallbladder with no findings of cholecystitis.? Urinary bladder decompressed and normal in appearance.? Prostate brachytherapy seeds present.? ? BONES: Left 8th through 10th rib fractures redemonstrated. Numerous small lytic lesions are present in the thoracic and lumbar vertebral bodies, nonspecific.? Findings could represent small atypical hemangiomas.? Metastatic disease is a possibility, although lytic prostate lesions are exceptionally rare.? Correlation with any prior outside imaging would be helpful to document stability of these lesions and confirm a b enign nature.? Alternatively, nonemergent MRI of the spine with and without IV contrast would be recommended. ? ? ? IMPRESSION:? ? Left 8th through 10th rib fractures redemonstrated. ? Scattered small round ground-glass airspace opacity and small tree-in-bud nodules.? Findings likely infectious/inflammatory and are new from the prior study.? ? Lytic lesions in the thoracic and lumbar spine are nonspecific but raise some concern for possible metastatic disease.? The patient likely has outside comparison switch could document stability these lesions and obviate the need for further workup, which if performed would be best performed via MRI of the thoracic and lumbar spine with IV contrast. ? ? Dictated by: Lanre Hightower M.D. on 01/22/2022 at 19:57 ? ? Approved by: Lanre Hightower M.D. on 01/22/2022 at 20:05 ? [facility] Narrative Medical decision making narrative: Patient with chills and constipation has reassuring history and physical exam. Imaging shows redemonstration of rib fractures but no significant effusion or ev idence of bleeding, he does have evidence of possible early pneumonia and given report of chills and slightly elevated white blood cell count we will treat for this. Abdomen has become distended and he is had decreased bowel movements and decreased flatus, however imaging demonstrates no evidence of obstruction. He was recently started on pain medication and had not been terribly aggressive with the use of laxatives. There is no evidence of traumatic injury in his bowels. Imaging does suggest lesions in the bone that could be consistent with metastatic disease, particularly concerning given his history of prostate cancer. He is given a disc with his images and strongly encouraged to follow closely with his doctors when he gets home in a few days. Extensive return precautions discussed and questions answered to his apparent satisfaction Discharge Plan Departure Patient Disposition: Home Clinical Impression: Pneumonia, Closed rib fracture, Acute constipation Instructions: DI for Abdominal Pain-Adult Activity Restrictions/Additional Instructions: *You have been diagnosed with [abdominal pain due to constipation, likely a consequence of being on opioid pain medications. As we discussed there is no evidence of bowel obstruction or other significant abdominal diagnosis] * *What to do: *Please continue to take your regular medications as directed. [x ] New medication prescriptions sent to your pharmacy: [[facility]] [x] we sent home with a bottle of magnesium citrate, please take half the bottle when you get home and if you have not had a large bowel movement in 4-6 hours you may drink the rest of the bottle. As we discussed this is likely to give you some cramping abdominal discomfort *Please follow up with your primary care provider as soon as you can once you get back to [place], call for an appointment. Let them know you were seen in the Emergency Department and that we ask that you be seen in follow up. *Please consider a clear liquid diet for the next 24-48 hours and then slowly advance to regular as tolerated. Also, try to avoid alcohol, nicotine, caffeine, spicy, acidic or fatty foods as this may worsen your symptoms *Take over the counter medications as directed: 1. Metamucil - bulk forming laxative adds fiber 2. Colace - softens your stool 3. Dulcolax Suppository - stimulates your bowels from the bottom *Return to ER if you should have any new, worsening or concerning symptoms *Drink plenty of water and eat foods high in fiber *Try to be as active as possible, consider walking your dog daily * as we discussed the imaging shows changes in the bones of your back that can be consistent with metastatic disease, given your history of prostate cancer this will need to be followed when you return home. We have put your imaging on a CD to take with you *Return to Emergency Department if you should have any new, worsening or concerning symptoms, such as [fever greater than 101 F, shaking chills, worsening pain, persistent vomiting or other bothersome symptoms] Prescriptions: New amoxicillin-pot clavulanate 875-125 mg tablet 1 tab PO Q12H Qty: 20 0RF No Action Eliquis 5 mg tablet 5 mg PO BID Label Comments: TAKE 1 TABLET BY MOUTH 2 TIMES A DAY lisinopril 5 mg Tablet 5 mg PO DAILY lidocaine 5 % Adhesive Patch,Medicated 1 patch topical BEDTIME 7 Days Qty: 7 0RF Rx Instructions: Apply for 12 hrs and remove with gap of 12 hrs between patches oxycodone 10 mg Tablet 10 mg PO Q6H PRN (Reason: Pain, Severe (7-10)) 7 Days Qty: 20 0RF Rx Instructions: As needed for pain, caution explained. acetaminophen 325 mg Tablet 650 mg PO Q6HR PRN (Reason: Fever/Mild Pain (1-3)) 7 Days Qty: 30 0RF Referrals: Miscellaneous,Doctor, MD [Primary Care Provider] - Visit Report Forms: Patient Portal/API
--- NOTE | 2022-01-22 18:06 | DI.RAD.S_ITS ---
PROCEDURE: XR ACUTE ABDOMEN SERIES INDICATIONS: Abdominal pain TECHNIQUE: One view chest and two views of the abdomen were acquired. COMPARISON: None. FINDINGS: Left chest wall 3 lead cardiac pacing device. Cardiomegaly. Central interstitial markings are increased with cephalization of pulmonary vessels. Small Jose B-lines noted. No focal consolidation. No pleural effusion or pneumothorax identified definitively. IMPRESSION: Cardiomegaly with findings of moderate cardiogenic pulmonary edema. Dictated by: Lanre Hightower M.D. on 01/22/2022 at 18:53 Approved by: Lanre Hightower M.D. on 01/22/2022 at 18:54
[2022-01-22 18:57] VITALS: BP 206/94; PULSE 92; RESP 20; TEMP 36.8; O2SAT 97; BMI 31.8
--- NOTE | 2022-01-22 19:07 | DI.CT.S_ITS ---
PROCEDURE: CT CHEST ABD PEL W CON INDICATIONS: recent trauma, anticoagulated, fever chills TECHNIQUE: After the administration of intravenous contrast, 5 mm thick sections acquired from the lung apices to the symphysis. 2.5 mm thick coronal and sagittal reformats were acquired. Additional 7 mm thick coronal maximum intensity projection (MIP) reformats acquired through the lungs. Optional 10-minute delayed imaging may be performed from the kidneys to the bladder. For radiation dose reduction, the following was used: automated exposure control, adjustment of mA and/or kV according to patient size. COMPARISON: [facility], CT, CT CHEST W CON, 01/20/2022, 22:57. FINDINGS: Image quality: Excellent. CHEST: Lungs: There are few scattered small round ground-glass airspace opacities in both lungs. These are new when compared with the prior exam. Findings are consistent with a bronchiolitis or small airways disease, either infectious or inflammatory. Mediastinum: No mediastinal hematomas. Heart size is normal. No pericardial effusion. Thoracic aorta and pulmonary arteries demonstrate normal size and enhancement. No mediastinal or hilar adenopathy. Esophagus is normal in caliber. No hiatal hernia. Chest wall: ABDOMEN AND PELVIS: No free air or free fluid. No acute enteric process. Normal CT appearance of the liver, spleen, and fatty atrophied pancreas. Right adrenal nodule unchanged. No acute renal or ureteral finding. Vicarious secretion of contrast in the gallbladder with no findings of cholecystitis. Urinary bladder decompressed and normal in appearance. Prostate brachytherapy seeds present. BONES: Left 8th through 10th rib fractures redemonstrated. Numerous small lytic lesions are present in the thoracic and lumbar vertebral bodies, nonspecific. Findings could represent small atypical hemangiomas. Metastatic disease is a possibility, although lytic prostate lesions are exceptionally rare. Correlation with any prior outside imaging would be helpful to document stability of these lesions and confirm a benign nature. Alternatively, nonemergent MRI of the spine with and without IV contrast would be recommended. IMPRESSION: Left 8th through 10th rib fractures redemonstrated. Scattered small round ground-glass airspace opacity and small tree-in-bud nodules. Findings likely infectious/inflammatory and are new from the prior study. Lytic lesions in the thoracic and lumbar spine are nonspecific but raise some concern for possible metastatic disease. The patient likely has outside comparison switch could document stability these lesions and obviate the need for further workup, which if performed would be best performed via MRI of the thoracic and lumbar spine with IV contrast. Dictated by: Lanre Hightower M.D. on 01/22/2022 at 19:57 Approved by: Lanre Hightower M.D. on 01/22/2022 at 20:05
[2022-01-22 19:33] LABS: Add Manual Diff / Slide Review NO; Basophils Absolute Auto 0 /uL (0-100); Basophils Percent Auto 0.4 % (0-2); Eosinophils Absolute Auto 100 /uL (0-450); Hematocrit 40.7 % (41-53); Hemoglobin 13.8 g/dL (13.5-17.5); Lymphocytes Absolute Auto 2200 /uL (1100-4500); Mean Corpuscular HGB Conc 33.8 % (30-36); Mean Corpuscular Hemoglobin 30.5 PG (26-34); Mean Corpuscular Volume 90.1 fL (80-100); Monocytes Absolute Auto 900 /uL (0-900); Monocytes Percent Auto 8.3 % (3-14); Neutrophils Absolute Auto 8200 /uL (1500-7000); Neutrophils Percent Auto 71.3 % (50-75); Platelet Count 262 X10^3/uL (150-400); Red Blood Cell Count 4.52 X10^6/uL (4.5-5.9); Red Cell Distribution Width 12.9 % (11.6-14.8); White Blood Cell Count 11.4 X10^3/uL (4.5-11.0)
[2022-01-22] MEDS: ONDANSETRON 4 MG/2 ML INJ IV (19:45)
[2022-01-22 20:00] LABS: Alanine Aminotransferase 14 IU/L (<50); Albumin Globulin Ratio 1.1 (1.0-2.8); Alkaline Phosphatase 86 U/L (38-126); Aspartate Aminotransferase 31 IU/L (17-59); BUN Creatinine Ratio 24.2 (6-22); Bilirubin Total 1.2 mg/dL (0.2-1.3); Blood Urea Nitrogen 22 mg/dL (9-20); Calcium 8.8 mg/dL (8.4-10.2); Carbon Dioxide 25 mmol/L (22-32); Chloride 105 mmol/L (98-107); Creatine Kinase 263 U/L (55-170); Estimated Glomerular Filt Rate > 60 mL/min (>60); Globulin 3.7 g/dL (1.7-4.1); Glucose 112 mg/dL (80-110); HEMOLYSIS 33 (0-50); Potassium 4.1 mmol/L (3.4-5.1); Sodium 140 mmol/L (137-145); Total Protein 7.7 g/dL (6.3-8.2)
[2022-01-22 20:11] LABS: Troponin I < 0.012 ng/mL (0.01-0.034)
[2022-01-22 20:18] LABS: CKMB % Relative Index 0.7 % (1.5-5.0); Creatine Kinase MB 1.77 ng/mL (<2.37); Procalcitonin 0.06 ng/mL (<0.5)
[2022-01-22 20:20] LABS: INR 1.2 (0.9-1.3); Prothrombin Time 13.6 SECONDS (10.1-12.7)
[2022-01-22 20:42] LABS: NT-proBNP (BNP-Adult 18+) 55 pg/mL (<450)
[2022-01-22] MEDS: cefTRIAXone 2,000 MG in SODIUM CHLORIDE 0.9% 100 ML 200 MG IV (21:19)
[2022-01-22] MEDS: BISACODYL 10 MG SUPP PR (21:21)
[2022-01-22] MEDS: AZITHROMYCIN 500 MG in DEXTROSE 5% IN WATER 250 ML 250 MG IV (21:52)
[2022-01-22 21:55] LABS: Bacteria Urine None Seen; Culture Indicated Urine Cult Not Indicated; RBC Urine None Seen (0-5/HPF); Urine Comments Microscopic Normal; WBC Urine None Seen (0-5/HPF)
--- NOTE | 2022-01-22 23:26 | PC.NURSE ---
pooped a small marble size amount of stool after enema
[2022-01-23 01:03] VITALS: BP 164/89; PULSE 69; RESP 18; O2SAT 99
== END 2022-01-23 01:03 | disposition home or self-care (01) ==
PROVIDERS: Emergency Provider Emergency Medicine
DX: S22.42XD Multiple fractures of ribs, left side, subsequent encounter for fracture with routine healing (principal); J18.9 Pneumonia, unspecified organism; K59.00 Constipation, unspecified; Z95.0 Presence of cardiac pacemaker
CPT/HCPCS: 36415; 71260; 74022; 74177; 80053; 81003; 81015; 82550; 82553; 83605; 83880; 84145; 84484; 85025; 85610; 86850; 86900; 86901; 87040; 96365; 96366; 96367; 96375; 99284; 99285; J0696; J2405; Q9967